=== PATIENT | male | born 1960 | race Two or more races ===

== ENCOUNTER 2019-08-12 19:51 | Emergency (ER) | payer OTHER ==
[~2019-08-12] VITALS: Ht 177.8 cm; Wt 86.2 kg
[2019-08-12] MEDS ORDERED: BENZONATATE 100 MG CAPSULE PO ONE (23:00)
[2019-08-12] MEDS ORDERED: BENZONATATE 100 MG CAPSULE ONE (23:04)
--- NOTE | 2019-08-12 23:05 | NUR ---
Patient discharged to home in stable conditon with Rx for Tessalon Perles and Z-pack. Written and verbal after care instructions given. Patient verbalizes understanding of instructions. Walked out of ER with no distress noted
[2019-08-12 23:07] VITALS: BP 138/89
== END 2019-08-12 23:07 | disposition home or self-care (01) ==
LOC: ER 19:57
DX: J20.9 Acute bronchitis, unspecified (principal); R51 Headache
CPT/HCPCS: A4663